=== PATIENT | female | born 2000 | race Caucasian/White ===

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

== ENCOUNTER 2019-09-28 07:34 | Emergency (ER) | payer OTHER ==
[2019-09-28 07:56] VITALS: BP 139/73
--- NOTE | 2019-09-28 08:11 | ED ---
Throat Pain/Nasal Congestion - HPI Summary HPI Summary: 19 yr old female with the complaint of sore throat. Onset of symptoms over the past couple of days. No NV. No runny nose. She has some pain in each ear. Symptoms worse with swallowing. No other complaints. - History of Current Complaint Chief Complaint: UCGeneralIllness Time Seen by Provider: 09/28/19 07:51 - Allergies/Home Medications Allergies/Adverse Reactions: Allergies Allergy/AdvReac Type Severity Reaction Status Date / Time No Known Allergies Allergy Verified 09/28/19 07:51 Home Medications: Home Medications Acetaminophen ADULT LIQ* [Tylenol ADULT LIQ*] 650 mg PO Q4H PRN 09/28/19 [ History Confirmed 09/28/19] Etonogest/Eth.estradiol (Nf) [Nuvaring Vaginal Ring] 1 each VAGINAL .SEE COMMENTS 09/28/19 [History Confirmed 09/28/19] Ibuprofen TAB* [Advil TAB*] 845 mg PO Q6H PRN 09/28/19 [History Confirmed ] PMH/Surg Hx/FS Hx/Imm Hx - Surgical History Surgery Procedure, Year, and Place: REMOVAL OF INFECTED LYMPH NODES A CHILD Infectious Disease History: No Infectious Disease History: Denies: Traveled Outside the [place] in Last 30 Days - Family History Known Family History: Positive: None - Social History Occupation: Student Alcohol Use: Occasionally Substance Use Type: Reports: None Smoking Status (MU): Never Smoked Tobacco Review of Systems Positive: Sore Throat All Other Systems Reviewed And Are Negative: Yes Physical Exam Triage Information Reviewed: Yes Vital Signs On Initial Exam: Initial Vitals Temp Pulse Resp BP Pulse Ox 98.8 F 96 16 139/73 100 09/28/19 07:49 09/28/19 07:49 09/28/19 07:49 09/28/19 07:49 09/28/19 07:49 Vital Signs Reviewed: Yes Appearance: Positive: Well-Appearing, No Pain Distress Skin: Positive: Warm, Skin Color Reflects Adequate Perfusion Head/Face: Positive: Normal Head/Face Inspection Eyes: Positive: EOMI ENT: Positive: Pharyngeal erythema Neck: Positive: Nontender Respiratory/Lung Sounds: Positive: Clear to Auscultation, Breath Sounds Present Cardiovascular: Positive: RRR. Negative: Murmur Abdomen Description: Negative: Distended Musculoskeletal: Positive: Strength/ROM Intact Neurological: Positive: Sensory/Motor Intact, Alert, Oriented to Person Place, Time, CN Intact II-III Psychiatric: Positive: Normal Diagnostics - Vital Signs Vital Signs Temp Pulse Resp BP Pulse Ox 09/28/19 07:49 98.8 F 96 16 139/73 100 - Laboratory Lab Results: Lab Results 09/28/19 Range/Units 07:59 Group A Strep Rapid Positive A (Negative) Lab Statement: Any lab studies that have been ordered have been reviewed, and results considered in the medical decision making process. EENT Course/Dx - Course Course Of Treatment: 19 yr old with strep pharyngitis. Rx with amox. - Diagnoses Provider Diagnoses: Strep pharyngitis, Hypertension Discharge ED - Sign-Out/Discharge Documenting (check all that apply): Patient Departure All imaging exams completed and their final reports reviewed: No Studies - Discharge Plan Condition: Good Disposition: HOME Prescriptions: Amoxicillin PO (*) [Amoxicillin 500 MG CAP*] 500 mg PO TID #30 cap Patient Education Materials: Strep Throat (DC) Referrals: [facility] [[facility]] No Primary Care Phys,NOPCP [Primary Care Provider] - - Billing Disposition and Condition Condition: GOOD Disposition: Home
== END 2019-09-28 08:11 | disposition home or self-care (01) ==
LOC: UCCORT 07:34
DX: J02.0 Streptococcal pharyngitis (principal); I10 Essential (primary) hypertension
CPT/HCPCS: 87651; 99212; G0463